=== PATIENT | female | born 2000 | race Caucasian/White ===

== ENCOUNTER 2025-01-12 14:25 | Emergency (ER) | payer OTHER | END 2025-01-12 18:02 | disposition home or self-care (01) | LOC: CSHERS 14:25 | DX: O9A.211 Injury, poisoning and certain other consequences of external causes complicating pregnancy, first trimester (principal); S30.11XA Contusion of abdominal wall, initial encounter; Z3A.09 9 weeks gestation of pregnancy; W50.0XXA Accidental hit or strike by another person, initial encounter | CPT/HCPCS: 76856 ==